=== PATIENT | female | born 1975 | race Caucasian/White ===

== ENCOUNTER 2020-03-23 13:20 | Outpatient (CLI) | payer OTHER, SELFPAY ==
--- NOTE | ~2020-03-23 | MM_ITS ---
EXAMINATION: MM screening queenie BI w dario HISTORY: Screening mammogram, family history of breast cancer in her mother. TECHNIQUE: Craniocaudal and mediolateral oblique 3-D tomosynthesis images were obtained and synthetic 2-D images were generated. CAD analysis was submitted and interpreted. COMPARISON: 09/17/2018, 06/11/2017, 04/13/2014 BREAST PARENCHYMAL COMPOSITION: The breasts are extremely dense, which lowers the sensitivity of mamm ography. FINDINGS: RIGHT BREAST: An asymmetry is present in the far posterior third of the slightly inner and lower tim st on the craniocaudal view. LEFT BREAST: There is no evidence of suspicious mass, calcification, or architectural distortion to s uggest malignancy. There has been no significant interval change. IMPRESSION: 1. Right breast asymmetry on the craniocaudal view. 2. Additional mammographic views and possible breast ultrasound are recommended. BI-RADS Category 0: Incomplete: Needs additional imaging evaluation. Reviewed, dictated and finalized at location A. E CAPTAIN IMPRESSION: 1. Right breast asymmetry on the craniocaudal view. 2. Additional mammographic views and possible breast ultrasound are recommended . BI-RADS Category 0: Incomplete: Needs additional imaging evaluation.
== END 2020-03-23 13:21 | disposition home or self-care (01) ==
LOC: ANHIMG 13:23
PROVIDERS: PCP Family Medicine; Visit Provider Obstetrics & Gynecology
DX: Z12.31 Encounter for screening mammogram for malignant neoplasm of breast (principal); R92.8 Other abnormal and inconclusive findings on diagnostic imaging of breast
CPT/HCPCS: 77063; 77067

== ENCOUNTER 2020-04-15 13:20 | Outpatient (CLI) | payer OTHER, SELFPAY ==
--- NOTE | ~2020-04-15 | MMUS_ITS ---
EXAMINATION: MM diagnostic mammo unilat RT, US breast RT limited HISTORY: Mammographic asymmetry in the far posterior third of slightly inner and lower right breast o n screening craniocaudal view of 03/23/2020 TECHNIQUE: Additional 3-D tomosynthesis images of the right breast were performed and synthetic 2-D i mages were generated. CAD analysis was submitted and interpreted. High resolution targeted lower inne r right breast ultrasound was performed. COMPARISON: 03/23/2020, 09/27/2018, 06/11/2017 bilateral digital screening mammogram examinations FINDINGS: MAMMOGRAPHIC FINDINGS: There is a faint low-density approximately 5 mm opacity at the posterior aspect of the lower inner ri ght breast (craniocaudal Tomosynthesis image 14/69). ULTRASOUND: In the posterior lower inner left breast at approximately 6-7:00 3 cm from the nipple there is a 5 x 7 mm hypoechoic lesion without internal vascularity or posterior shadowing. No other significant sonographic finding is noted. IMPRESSION: 1. Probable benign finding 2. Right diagnostic mammogram and targeted right breast ultrasound follow-up in 6 months are recommen ded. BI-RADS category 3, probably benign findings. Reviewed, dictated and finalized at location A. R PLANT INSTALLER IMPRESSION: 1. Probable benign finding 2. Right diagnostic mammogram and targeted right breast ultrasound follow-up in 6 months are recommended. BI-RADS category 3, probably benign findings.
== END 2020-04-15 13:21 | disposition home or self-care (01) ==
PROVIDERS: PCP Family Medicine; Visit Provider Obstetrics & Gynecology
DX: N63.15 Unspecified lump in the right breast, overlapping quadrants (principal)
CPT/HCPCS: 76642; 77065

== ENCOUNTER 2021-04-25 08:04 | Outpatient (CLI) | payer OTHER, SELFPAY ==
--- NOTE | ~2021-04-25 | MM_ITS ---
EXAMINATION: MM screening queenie BI w dario HISTORY: Screening mammogram, family history of breast cancer in her mother. TECHNIQUE: Craniocaudal and mediolateral oblique 3-D tomosynthesis images were obtained and synthetic 2-D images were generated. CAD analysis was submitted and interpreted. COMPARISON: 04/15/2020, 03/23/2020, 09/27/2018, 06/11/2017 BREAST PARENCHYMAL COMPOSITION: The breasts are extremely dense, which lowers the sensitivity of mamm ography. FINDINGS: There is no evidence of suspicious mass, calcification, or architectural distortion to sugg est malignancy in either breast. There has been no suspicious interval change. IMPRESSION: 1. No mammographic evidence of malignancy. 2. Recommend routine screening mammography in one year. BI-RADS Category 1: Negative Reviewed, dictated and finalized at location A. NCE WRITER
== END 2021-04-25 08:05 | disposition home or self-care (01) ==
LOC: ANHIMG 08:08
PROVIDERS: PCP Family Medicine; Visit Provider Obstetrics & Gynecology
DX: Z12.31 Encounter for screening mammogram for malignant neoplasm of breast (principal)
CPT/HCPCS: 77063; 77067

== ENCOUNTER 2022-01-11 13:23 | Emergency (ER) | payer MEDICAID, SELFPAY ==
[2022-01-11] VITALS (15 sets, daily range): BP systolic 135–157; BP diastolic 73–97; PULSE 72–92; RESP 13–20; TEMP 36.6; O2SAT 98–100
--- NOTE | ~2022-01-11 | CT_ITS ---
EXAMINATION: CT abdomen pelvis w con DATE: 01/11/2022 19:55 INDICATION: Left upper quadrant abdominal pain TECHNIQUE: Computed tomography (CT) of the abdomen and pelvis was performed with 100 mL Omnipaque-350 intravenous contrast. Automated exposure control and iterative reconstruction technique were employe d. The dose-length product was 537.32 mGy-cm. COMPARISON: None FINDINGS: Lung bases are clear. Heart size is normal. No pericardial or pleural effusion. Liver, gallbladder, s pleen, pancreas, bilateral adrenal glands and kidneys are normal. There is mild colonic diverticulosi s with a sigmoid predominance. There is no adjacent inflammatory change to suggest diverticulitis. S mall bowel and appendix are normal. Decompressed bladder, anteverted uterus and right adnexa are unre markable. 3.9 cm cystic lesion at the left ovary with gradient of increasing density posteriorly sugg esting a hematocrit level in the hemorrhagic cyst. Small amount of free fluid in the cul-de-sac with greater than simple fluid attenuation most likely minimal hemoperitoneum potential related to cyst ru pture. No surrounding inflammatory stranding to suggest peritonitis or pelvic inflammatory disease. N o abscess or free intraperitoneal gas. No pathologically enlarged abdominal or pelvic lymphadenopathy . Bones are unremarkable. IMPRESSION: 1. 3.9 cm left adnexal cyst with gradient of increasing dependent attenuation suggesting layering blo od in a hemorrhagic cyst. 2. Very small amount of high attenuation fluid in the cul-de-sac suggesting minimal hemoperitoneum. 3. Mild diverticulosis. Reviewed, dictated and finalized at location A. IMPRESSION: 1. 3.9 cm left adnexal cyst with gradient of increasing dependent attenuation s uggesting layering blood in a hemorrhagic cyst. 2. Very small amount of high attenuation fluid in the cul-de-sac suggesting min imal hemoperitoneum. 3. Mild diverticulosis.
--- NOTE | ~2022-01-11 | US_ITS ---
EXAMINATION: US pelvic complete w TV DATE: 01/11/2022 21:40 INDICATION: Abdominal pain. Assess for ovarian torsion. TECHNIQUE: Multiple transabdominal and endovaginal sonographic images of the pelvis were obtained. COMPARISON: CT dated 01/11/2022 FINDINGS: The uterus measures 8.1 x 3.3 x 4.4 cm. The endometrial complex measures 9 mm in thickness. 7 mm ane choic nabothian cyst at the cervix. The right ovary measures 3.0 x 1.5 x 1.8 cm. Both venous and kaelyn rial waveforms identified in the right ovary on color Doppler. The left ovary measures 5.6 x 3.5 x 4. 1 cm. 3.7 x 3.4 x 2.7 cm complex anechoic and hypoechoic cyst in the left ovary with no evident vascu lar flow within the hypoechoic component of the complex cyst on color Doppler. Vascular flow with bot h arterial and venous waveforms also identified at the left ovary on color Doppler. There is only a t race amount of free fluid in the pelvis. IMPRESSION: 1. 3.7 cm complex cystic lesion in the left ovary with appearance both on ultrasound and prior CT con sistent with hemorrhagic cyst. Consider 6-12 month follow-up to document resolution. 2. Vascular flow identified in both ovaries on color Doppler. Reviewed, dictated and finalized at location A. IMPRESSION: 1. 3.7 cm complex cystic lesion in the left ovary with appearance both on ultra sound and prior CT consistent with hemorrhagic cyst. Consider 6-12 month follow -up to document resolution. 2. Vascular flow identified in both ovaries on color Doppler.
--- NOTE | 2022-01-11 13:58 | PC.NURSE ---
called for triage at 1353. no answer.
--- NOTE | 2022-01-11 14:23 | PC.NURSE ---
pt called for triage. no response.
--- NOTE | 2022-01-11 14:33 | PC.NURSE ---
Pt walks back in to ED stating that she still wants to be seen by a physician. This RN informs her that she is still on the list to be triaged.
[2022-01-11 14:57] LABS: Basophils Percent Auto 0.3 % (0.2-1.2); Eosinophils Absolute Auto 0.2 K/mm3 (0-0.3); Eosinophils Percent Auto 1.7 % (0-4.4); Hematocrit 41.3 % (37.0-47.0); Hemoglobin 13.7 g/dL (12.0-15.0); Immature Granulocyte Absolute 0.03 K/mm3 (0.00-0.031); Immature Granulocyte Percent A 0.3 % (0-0.5); Mean Corpuscular HGB Conc 33.2 g/dl (32-36); Mean Corpuscular Hemoglobin 30.4 pg (26-34); Mean Corpuscular Volume 91.8 fl (80-100); Mean Platelet Volume 10.1 fl (7.4-10.4); Monocytes Absolute Auto 0.9 K/mm3 (0.1-0.6); Monocytes Percent Auto 9.3 % (2.6-8.5); Neutrophils Absolute Auto 7.5 K/mm3 (1.3-6.7); Neutrophils Percent Auto 74.4 % (45.5-73.1); Platelet Count Result 267 k/mm3 (150-375); Red Cell Distribution Width 14.1 % (11.5-14.5)
[2022-01-11 15:07] LABS: Alanine Aminotransferase 15 U/L (6-35); Albumin Level 4.4 g/dL (3.5-5.1); Alkaline Phosphatase 65 U/L (38-126); Anion Gap 1 mmol/L (8-16); Aspartate Amino Transferase 25 U/L (14-36); Bilirubin,Total 0.2 mg/dL (0.2-1.3); Blood Urea Nitrogen 11 mg/dL (7-17); Carbon Dioxide 28 mmol/L (22-30); Chloride 102 mmol/L (98-107); Estimated CRCL calculation 92 ml/min; Estimated Glomerular Filt Rate > 60; Glucose 80 mg/dL (65-110); Lipase 54 U/L (23-300); Sodium 131 mmol/L (137-145)
[2022-01-11 17:11] LABS: Appearance Urine Slightly Cloudy (Clear); Bilirubin Urine Negative (Negative); Blood Urine Negative (Negative); Color Urine Yellow (Yellow); Glucose Urine UA Negative (Negative); Ketones Urine Trace mg/dL (Negative); Leukocyte Esterase Ur Negative LEU/UL (Negative); Nitrate Urine Negative (Negative); Protein Urine Negative (Negative); Specific Grav Ur 1.025 (1.001-1.035); Urobilinogen Urine 0.2 mg/dL (<2.0); pH Urine 5.5 (5.0-9.0)
[2022-01-11 17:15] LABS: Bacteria Urine Trace /hpf; Mucus Urine Few /lpf; RBC Urine 0-2 /hpf (0-2); Squamous Epithelial Cell Urine Occasional /hpf (Few); WBC Urine 0-3 /hpf
[2022-01-11 17:27] LABS: Add Urine Microscopic? YES
--- NOTE | 2022-01-11 18:31 | ED.GENADULT ---
HPI - General Adult General Chief complaint: Abdominal Pain Stated complaint: LUQ pain, nausea Time Seen by Provider: 01/11/22 18:12 History of Present Illness HPI narrative: 46-year-old female presenting to the emergency department for evaluation of lower abdominal pain. Patient states yesterday she felt like she had decreased energy. Today patient was complaining of increased lower abdominal pain. Patient did have a bowel movement earlier which was watery. Patient denies any change or pain with his bowel movement. Patient denies any associated nausea or vomiting. Patient did have a exploratory laparoscopy for endometriosis when she was 20 years old. Related Data Home Medications Medication Instructions Recorded Confirmed multivitamin (Daily Multi-Vitamin 1 tablet PO DAILY 12/14/20 12/14/20 tablet) Allergies Allergy/AdvReac Type Severity Reaction Status Date / Time shellfish derived Allergy Unknown Unknown Verified 01/11/22 18:39 Review of Systems Review of Systems: CONSTITUTIONAL: Denies fever, chills, or sweats. EYES: Denies visual changes, redness, or discharge. ENT: Denies rhinorrhea, congestion, sore throat, or otalgia. CARDIOVASCULAR: Denies chest pain, palpitations, or edema. RESPIRATORY: Denies cough or dyspnea. GASTROINTESTINAL: See HPI GENITOURINARY: Denies dysuria or hematuria. SKIN: Denies rash or itching. MUSCULOSKELETAL: Denies back pain, joint pain, or myalgia. NEUROLOGIC: Denies headache, numbness, or weakness. [facility] Past Medical History Medical History (Updated 01/11/22 @ 22:02 by Sabino Alvarez MD) Endometriosis History of vaginal delivery x 1 2012 Surgical History Surgical History H/O laparoscopy Family History Family History Mother Family history of thyroid disease Family history of malignant neoplasm of breast in first degree relative Patient's mother is in good health Sibling Patient's sister is in good health Other Family history of malignant neoplasm of ovary Social History Social History Smoking status: Never smoker Second hand tobacco smoke exposure: No Smoking end date: 05/13/04 Alcohol intake: current Drinks per week: 2 Substance use: current Substance use type: marijuana Gender identity (if verbalized by the patient): Female Exam Narrative: APPEARANCE: Well appearing, no pain, no distress, well-nourished. HEAD: normocephalic, atraumatic. EYES: PERRLA/EOMI, conjunctivae clear. NOSE: Normal no drainage EARS:TMS clear with good light reflex. THROAT: Pharynx clear, no exudate. NECK: Supple. No adenopathy, no masses. RESPIRATORY: Airway patent, respirations nonlabored. Clear to auscultation bilaterally, no rales, rhonchi, wheezing. CARDIOVASCULAR: Regular rate and rhythm without murmurs rubs or gallops. ABDOMINAL: Normal bowel sounds, bilateral lower abdominal tenderness to palpation. No rebound or guarding. MUSCULOSKELETAL: Moves all extremities. Strength/ROM intact, No edema, No calf tenderness. NEURO: Alert. Cranial nerves II through XII intact. Grossly intact SKIN: Warm, dry. Normal Color Course Vital Signs Vital signs: Vital Signs Temperature 97.9 F 01/11/22 14:40 Pulse Rate 72 01/11/22 14:40 Respiratory Rate 16 01/11/22 14:40 Blood Pressure 141/96 H 01/11/22 14:40 Pulse Oximetry 100 01/11/22 14:40 Oxygen Delivery Room Air 01/11/22 14:40 Temperature 97.9 F 01/11/22 14:40 Pulse Rate 84 01/11/22 18:46 Respiratory Rate 19 01/11/22 18:46 Blood Pressure 143/88 H 01/11/22 19:16 Pulse Oximetry 100 01/11/22 19:30 Oxygen Delivery Room Air 01/11/22 14:40 Medical Decision Making Vital Signs Vital Signs: Vital Signs Temperature 97.9 F 01/11/22 14:40 Pulse Rate 72 01/11/22 14:40 Respiratory Rate 16 01/11
== END 2022-01-11 22:24 | disposition home or self-care (01) ==
PROVIDERS: Emergency Medicine; Emergency Provider Emergency Medicine
DX: N83.202 Unspecified ovarian cyst, left side (principal); N80.9 Endometriosis, unspecified; Z87.891 Personal history of nicotine dependence; K57.90 Diverticulosis of intestine, part unspecified, without perforation or abscess without bleeding
CPT/HCPCS: 36415; 74177; 76830; 76856; 80053; 81001; 81025; 83690; 85025; 99284; Q9967